=== PATIENT | female | born 1945 | race Caucasian/White ===

== ENCOUNTER 2017-08-04 16:52 | Inpatient (IN) | payer OTHER ==
[2017-08-04 20:16] VITALS: BMI 30.7
--- NOTE | 2017-08-04 20:59 | CP.PCM.HP ---
History of Present Illness - History of Present Illness History of Present Illness: PMD: Dr Medrano Orthopedic: Dr Landa Chief complaint: Painful right humerus The patient was seen and examined in the TCU HPI: 71 years old female with hx of HTN, admitted to the [facility] on and diagnosed with Right Humeral neck fracture s/p right shoulder replacement on 08/03/17. She is transferred to the [facility] for continued treatment. In the [facility] she was being treated for Asymptomatic Pyuria. At present she refers no dysuria, urinary frequencies, headache, dizziness, nausea, vomiting and minimal pain to the right shoulder. PMH: HTN, HLD PSH: Righ shoulder Humeral neck replacement FH: Brother - DC at 60 and Liver CA, Sister - 4 cardiac surgeries at the age of 27 SH: Denies toba Allergies: NKDA Medication. Reviewed Present on Admission - Present on Admission Any Indicators Present on Admission: No History of DVT/PE: No History of Uncontrolled Diabetes: No Urinary Catheter: No Decubitus Ulcer Present: No Review of Systems - Constitutional Constitutional: absent: Anorexia, Chills, Fatigue, Fever, Lethargy - EENT Eyes: Requires Corrective Lenses. absent: Diplopia, Floaters Ears: absent: Decreased Hearing, Ear Discharge, Tinnitus Nose/Mouth/Throat: absent: Epistaxis, Nasal Congestion, Nasal Discharge, Sinus Pain, Sinus Pressure - Cardiovascular Cardiovascular: absent: Chest Pain at Rest, Dyspnea, Edema - Respiratory Respiratory: absent: Cough, Dyspnea, Wheezing, Chest Congestion - Gastrointestinal Gastrointestinal: absent: Constipation, Diarrhea, Nausea, Vomiting - Genitourinary Genitourinary: absent: Dysuria, Flank Pain, Hematuria, Urinary Frequency - Musculoskeletal Additional comments: Right shoulder with Otrhopedic cast post shoulder replacement - Integumentary Integumentary: absent: Pruritus, Rash, Skin Ulcer, Sores, Striae, Swelling - Neurological Neurological: absent: Confusion, Dizziness, Focal Weakness, Headaches, Paresthesias, Weakness - Psychiatric Psychiatric: absent: Anxiety, Depression, Panic Attacks - Endocrine Endocrine: absent: Palpitations, Polydipsia, Polyphagia, Polyuria - Hematologic/Lymphatic Hematologic: absent: Easy Bleeding, Easy Bruising Past Patient History - Past Medical History & Family History Past Medical History?: Yes - Past Social History Smoking Status: Never Smoked Chewing Tobacco Use: No Cigar Use: No Alcohol: Social Drugs: Denies Home Situation {Lives}: With Family - CARDIAC Hx Hypercholesterolemia: Yes Hx Hypertension: Yes - PULMONARY Hx Respiratory Disorders: No - NEUROLOGICAL Hx Neurological Disorder: No - HEENT Hx HEENT Problems: No - RENAL Hx Chronic Kidney Disease: No - ENDOCRINE/METABOLIC Hx Endocrine Disorders: No - HEMATOLOGICAL/ONCOLOGICAL Hx AIDS: No Hx Human Immunodeficiency Virus (HIV): No - INTEGUMENTARY Hx Dermatological Problems: No - MUSCULOSKELETAL/RHEUMATOLOGICAL Hx Falls: Yes (fell recently, Fx rt humerus) - GASTROINTESTINAL Hx Gastrointestinal Disorders: No - GENITOURINARY/GYNECOLOGICAL Hx Genitourinary Disorders: No - PSYCHIATRIC Hx Substance Use: No - SURGICAL HISTORY Hx Surgeries: No - ANESTHESIA Hx Anesthesia: Yes Hx Anesthesia Reactions: No Hx Malignant Hyperthermia: No Meds Allergies/Adverse Reactions: Allergies Allergy/AdvReac Type Severity Reaction Status Date / Time No Known Allergies Allergy Unverified 07/31/17 11:06 Physical Exam - Constitutional Appears: No Acute Distress - Head Exam Head Exam: ATRAUMATIC, NORMAL INSPECTION, NORMOCEPHALIC - Eye Exam Eye Exam: EOMI, Normal appearance Pupil Exam: NORMAL ACCOMODATION, PERRL - ENT Exam ENT Exam: Mucous Membranes Moist, Normal Exam - Neck Exam Neck exam: Positive for: Full Rom, Normal Inspection. Negative for: Lymphadenopathy, Tenderness - Respiratory Exam Respiratory Exam: Clear to Auscultation Bilateral. absent: Rales, Rhonchi, Wheezes - Cardiovascular Exam Cardiovascular Exam: REGULAR RHYTHM, +S1, +S2 - GI/Abdominal Exam GI & Abdominal Exam: Normal Bowel Sounds, Soft. absent: Mass, Organomegaly - Rectal Exam Rectal Exam: Deferred - Extremities Exam Additional comments: Right should cast post surgery. - Back Exam Back exam: NORMAL INSPECTION. absent: CVA tenderness (L), CVA tenderness (R) - Neurological Exam Neurological exam: Alert, CN II-XII Intact, Oriented x3, Reflexes Normal - Psychiatric Exam Psychiatric exam: Normal Affect, Normal Mood - Skin Skin Exam: Dry, Intact, Normal Color, Warm Results - Vital Signs Recent Vital Signs: Last Vital Signs Temp Pulse 73 08/04/17 20:36 Resp 18 08/04/17 20:36 BP Pulse Ox 96 08/04/17 20:36 Assessment & Plan - Assessment and Plan (Free Text) Assessment: #. Humeral Neck fracture #. HTN #. Pyuria Plan: 71 years old female with hx of HTN, admitted to the [facility] on and diagnosed with Right Humeral neck fracture s/p right shoulder replacement on 08/03/17. She is transferred to the [facility] for continued treatment. In the [facility] she was being treated for Asymptomatic Pyuria. #. 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 HTN - Metoprolol - Monitor BP #. Pyuria. Patient received 2 days of Ceftriaxone. - Ceftriaxone for 1 day more and DC if patient has no urinary symptoms - Stat UA - CBC to evaluate WBC #. Stress Ulcer prophylaxis with Pantoprazol #. DVT prophylaxis with Lovenox #.Code Status: Full - Date & Time Date: 08/04/17 Time: 20:59
[2017-08-04] MEDS ORDERED: Oxycodone/Acetaminophen 5/325 mg Tab PO PRN (21:06)
[2017-08-05] MEDS: cefTRIAXone IV 1 gm in Dextros 50 ML IVPB SCH (05:22)
[2017-08-05 06:06] LABS: BASO # 0.1 K/uL (0.0-0.2); BASO % 0.6 % (0.0-2.0); EOS # 0.2 K/uL (0.0-0.7); EOS % 1.9 % (0.0-4.0); HEMATOCRIT 32.5 % (34.0-47.0); LYMPH # 1.9 K/uL (1.0-4.3); LYMPH % 14.9 % (20.0-40.0); MEAN CELL VOLUME 100.6 fl (81.0-99.0); MEAN CORPUSCULAR HEMOGLOBIN 33.8 pg (27.0-31.0); MEAN CORPUSCULAR HGB CONC 33.6 g/dL (33.0-37.0); MEAN PLATELET VOLUME 9.7 fl (7.2-11.7); MONO # 2.5 K/uL (0.0-0.8); MONO % 19.5 % (0.0-10.0); NEUT # 8.1 K/uL (1.8-7.0); NEUT % 63.1 % (50.0-75.0); WHITE BLOOD COUNT 12.8 K/uL (4.8-10.8)
[2017-08-05] MEDS: Oxycodone/Acetaminophen 5/325 mg Tab PO PRN ×3 (06:18→20:25)
[2017-08-05 08:04] VITALS: RESP 20
[2017-08-05] MEDS: Pantoprazole 40 mg EC Tab PO SCH (08:58)
[2017-08-05] MEDS: Enoxaparin 40 mg Syringe SC SCH (08:58)
[2017-08-05] MEDS: Saccharomyces Boulardi 250 mg Cap PO SCH ×2 (08:58→16:02)
[2017-08-05] MEDS ORDERED: cefTRIAXone (Rocephin) 1 gm Inj IVPB SCH (09:00)
[2017-08-05 09:42] LABS: RBC URINE 2 /hpf (0-3); URINE BILIRUBIN NEGATIVE (NEGATIVE); URINE BLOOD NEGATIVE (NEGATIVE); URINE COLOR AMBER (YELLOW); URINE GLUCOSE (UA) NEG (Normal); URINE KETONE TRACE mg/dL (NEGATIVE); URINE LEUKOCYTE ESTERASE SMALL Leu/uL (Negative); URINE PROTEIN NEGATIVE (NEGATIVE); WBC URINE 5 /hpf (0-5)
--- NOTE | 2017-08-05 13:07 | CP.PCM.PN ---
Subjective - Date & Time of Evaluation Date of Evaluation: 08/05/17 Time of Evaluation: 13:04 - Subjective Subjective: Patient states pain is well controlled, denies numbness /tingling. Objective - Vital Signs/Intake and Output Vital Signs (last 24 hours): Temp Pulse Resp BP Pulse Ox 97.2 F L 80 20 121/65 99 08/05/17 08:03 08/05/17 08:58 08/05/17 08:03 08/05/17 08:58 08/05/17 08:03 - Medications Medications: Current Medications Docusate Sodium (Colace) 100 mg PO BID [facility] Last Admin: 08/05/17 08:57 Dose: 100 mg Enoxaparin Sodium (Lovenox) 40 mg SC DAILY [facility] PRN Reason: Protocol Last Admin: 08/05/17 08:58 Dose: 40 mg Ceftriaxone Sodium (Rocephin Iv 1 Gm Duplex) 50 mls @ 50 mls/hr IVPB DAILY@ 0500 [facility] Stop: 08/06/17 05:01 Last Admin: 08/05/17 05:22 Dose: 50 mls/hr Metoprolol Tartrate (Lopressor) 50 mg PO BID [facility] Last Admin: 08/05/17 08:58 Dose: 50 mg Oxycodone/Acetaminophen (Percocet 5/325 Mg Tab) 2 tab PO Q4 PRN PRN Reason: for pain level 8-10 Stop: 08/07/17 21:07 Last Admin: 08/05/17 06:18 Dose: 2 tab Oxycodone/Acetaminophen (Percocet 5/325 Mg Tab) 1 tab PO Q4 PRN PRN Reason: for pain level 4-7 Stop: 08/07/17 21:07 Pantoprazole Sodium (Protonix Ec Tab) 40 mg PO DAILY [facility] Last Admin: 08/05/17 08:58 Dose: 40 mg Saccharomyces Boulardii (Florastor) 250 mg PO BID [facility] Last Admin: 08/05/17 08:58 Dose: 250 mg - Labs Labs: 08/05/17 05:45 - Extremities Exam Additional comments: RUE: +ROM wrist/fingers, sensation nintact rad/ulnar/med nerves, +radial pulse, no visible drainage, shoulder immob intact Assessment and Plan (1) Closed fracture of right proximal humerus Assessment & Plan: POD#2 s/p right shoulder reverse TSA orthopedically stable for d/c patient with group b strep UTI on admission, tx as per medicine, patient is on rocephin day #3 maintain immob at all times keep incision site dry dressing may be removed by patient on wednesday 08/08 and keep covered with dry sterile dressing ntil allyssa removed d/w Dr. Landa, agrees with above Status: Acute
[2017-08-06] MEDS: cefTRIAXone IV 1 gm in Dextros 50 ML IVPB SCH (04:22)
[2017-08-06] MEDS: Oxycodone/Acetaminophen 5/325 mg Tab PO PRN ×3 (04:52→22:34)
[2017-08-06] MEDS: Pantoprazole 40 mg EC Tab PO SCH (09:07)
[2017-08-06] MEDS: Saccharomyces Boulardi 250 mg Cap PO SCH ×2 (09:07→16:01)
[2017-08-06] MEDS: Enoxaparin 40 mg Syringe SC SCH (09:07)
--- NOTE | 2017-08-06 13:27 | CP.PCM.PN ---
Subjective - Date & Time of Evaluation Date of Evaluation: 08/06/17 Time of Evaluation: 13:25 - Subjective Subjective: PT +WBC, afebrile Was given Ceftriaxone, however WBC worsening URINE CX +GBS Sensitive to PCN; AMOXICILLIN 500 MG PO Q8 HOURS INITIATED FOR 7 DAY COURSE per guidelines for less severe infections. If condition worsens, may consider IV PEN G 3-4 million units q4 hours Objective - Vital Signs/Intake and Output Vital Signs (last 24 hours): Temp Pulse Resp BP Pulse Ox 98.4 F 82 20 185/85 H 96 08/06/17 08:37 08/06/17 09:07 08/06/17 08:37 08/06/17 09:07 08/06/17 08:37 - Medications Medications: Current Medications Amoxicillin (Amoxil 500 Mg Cap) 500 mg PO Q8 [facility] PRN Reason: Protocol Stop: 08/13/17 17:01 Docusate Sodium (Colace) 100 mg PO BID [facility] Last Admin: 08/06/17 09:08 Dose: 100 mg Enoxaparin Sodium (Lovenox) 40 mg SC DAILY [facility] PRN Reason: Protocol Last Admin: 08/06/17 09:07 Dose: 40 mg Metoprolol Tartrate (Lopressor) 50 mg PO BID [facility] Last Admin: 08/06/17 09:07 Dose: 50 mg Oxycodone/Acetaminophen (Percocet 5/325 Mg Tab) 2 tab PO Q4 PRN PRN Reason: for pain level 8-10 Stop: 08/07/17 21:07 Last Admin: 08/06/17 11:32 Dose: 2 tab Oxycodone/Acetaminophen (Percocet 5/325 Mg Tab) 1 tab PO Q4 PRN PRN Reason: for pain level 4-7 Stop: 08/07/17 21:07 Pantoprazole Sodium (Protonix Ec Tab) 40 mg PO DAILY [facility] Last Admin: 08/06/17 09:07 Dose: 40 mg Saccharomyces Boulardii (Florastor) 250 mg PO BID [facility] Last Admin: 08/06/17 09:07 Dose: 250 mg - Labs Labs: 08/05/17 05:45
[2017-08-07] MEDS: Oxycodone/Acetaminophen 5/325 mg Tab PO PRN ×3 (09:24→21:07)
[2017-08-07] MEDS: Saccharomyces Boulardi 250 mg Cap PO SCH ×2 (09:25→16:48)
[2017-08-07] MEDS: Enoxaparin 40 mg Syringe SC SCH (09:25)
[2017-08-07] MEDS: Pantoprazole 40 mg EC Tab PO SCH (09:26)
[2017-08-07] MEDS ORDERED: Oxycodone/Acetaminophen 5/325 mg Tab PO PRN (22:39)
[2017-08-08] MEDS: Oxycodone/Acetaminophen 5/325 mg Tab PO PRN ×4 (06:11→20:51)
[2017-08-08] MEDS: Pantoprazole 40 mg EC Tab PO SCH (08:51)
[2017-08-08] MEDS: Saccharomyces Boulardi 250 mg Cap PO SCH ×2 (08:51→17:19)
[2017-08-08] MEDS: Enoxaparin 40 mg Syringe SC SCH (08:53)
--- NOTE | 2017-08-08 12:19 | CP.PCM.PN ---
Subjective - Date & Time of Evaluation Date of Evaluation: 08/08/17 Time of Evaluation: 12:15 - Subjective Subjective: S- pt comfortable with minimal post op dsicomfort Objective - Vital Signs/Intake and Output Vital Signs (last 24 hours): Temp Pulse Resp BP Pulse Ox 98.1 F 73 20 136/70 99 08/08/17 08:09 08/08/17 08:52 08/08/17 08:09 08/08/17 08:52 08/08/17 08:09 - Medications Medications: Current Medications Amoxicillin (Amoxil 500 Mg Cap) 500 mg PO Q8 [facility] PRN Reason: Protocol Stop: 08/13/17 17:01 Last Admin: 08/08/17 08:52 Dose: 500 mg Docusate Sodium (Colace) 100 mg PO BID [facility] Last Admin: 08/08/17 08:51 Dose: 100 mg Metoprolol Tartrate (Lopressor) 50 mg PO BID [facility] Last Admin: 08/08/17 08:52 Dose: 50 mg Oxycodone/Acetaminophen (Percocet 5/325 Mg Tab) 2 tab PO Q4 PRN PRN Reason: Pain, severe (8-10) Stop: 08/10/17 22:39 Last Admin: 08/08/17 12:10 Dose: 2 tab Oxycodone/Acetaminophen (Percocet 5/325 Mg Tab) 1 tab PO Q4 PRN PRN Reason: Pain, moderate (4-7) Stop: 08/10/17 22:40 Pantoprazole Sodium (Protonix Ec Tab) 40 mg PO DAILY [facility] Last Admin: 08/08/17 08:51 Dose: 40 mg Saccharomyces Boulardii (Florastor) 250 mg PO BID [facility] Last Admin: 08/08/17 08:51 Dose: 250 mg - Labs Labs: 08/05/17 05:45 - Additional Findings Additional findings: Objective sytemic- wnl Musculoskeltal stance/gait- defrred orthopedically stable R shoulder wound benign n/v intact post op xrasy - reveal acceptable position of construct orthopedically stable
[2017-08-09] MEDS: Oxycodone/Acetaminophen 5/325 mg Tab PO PRN ×2 (08:30→21:16)
[2017-08-09] MEDS: Saccharomyces Boulardi 250 mg Cap PO SCH ×2 (08:33→16:42)
[2017-08-09] MEDS: Pantoprazole 40 mg EC Tab PO SCH (08:33)
--- NOTE | 2017-08-09 17:44 | CP.PCM.PN ---
Subjective - Date & Time of Evaluation Date of Evaluation: 08/09/17 Time of Evaluation: 17:40 - Subjective Subjective: Patient seen and examined bedside. Feeling well. Hemodynamically stabel, afebrile. Pain is controlled. Participating with PT. No acute issues overnight Objective - Vital Signs/Intake and Output Vital Signs (last 24 hours): Temp Pulse Resp BP Pulse Ox 97.7 F 76 20 134/71 97 08/09/17 16:36 08/09/17 16:43 08/09/17 16:36 08/09/17 16:43 08/09/17 16:36 - Medications Medications: Current Medications Amoxicillin (Amoxil 500 Mg Cap) 500 mg PO Q8 [facility] PRN Reason: Protocol Stop: 08/13/17 17:01 Last Admin: 08/09/17 16:42 Dose: 500 mg Docusate Sodium (Colace) 100 mg PO BID [facility] Last Admin: 08/09/17 16:43 Dose: 100 mg Metoprolol Tartrate (Lopressor) 50 mg PO BID [facility] Last Admin: 08/09/17 16:43 Dose: 50 mg Oxycodone/Acetaminophen (Percocet 5/325 Mg Tab) 2 tab PO Q4 PRN PRN Reason: Pain, severe (8-10) Stop: 08/10/17 22:39 Last Admin: 08/09/17 08:30 Dose: 2 tab Oxycodone/Acetaminophen (Percocet 5/325 Mg Tab) 1 tab PO Q4 PRN PRN Reason: Pain, moderate (4-7) Stop: 08/10/17 22:40 Last Admin: 08/09/17 16:45 Dose: 1 tab Pantoprazole Sodium (Protonix Ec Tab) 40 mg PO DAILY [facility] Last Admin: 08/09/17 08:33 Dose: 40 mg Saccharomyces Boulardii (Florastor) 250 mg PO BID [facility] Last Admin: 08/09/17 16:42 Dose: 250 mg - Labs Labs: 08/05/17 05:45 - Constitutional Appears: Non-toxic, No Acute Distress - Head Exam Head Exam: ATRAUMATIC, NORMAL INSPECTION, NORMOCEPHALIC - Eye Exam Eye Exam: EOMI, Normal appearance, PERRL Pupil Exam: NORMAL ACCOMODATION - ENT Exam ENT Exam: Mucous Membranes Moist, Normal Exam - Neck Exam Neck Exam: Full ROM, Normal Inspection - Respiratory Exam Respiratory Exam: Clear to Ausculation Bilateral, NORMAL BREATHING PATTERN. absent: Rales, Rhonchi, Wheezes - Cardiovascular Exam Cardiovascular Exam: REGULAR RHYTHM, RRR, +S1, +S2. absent: JVD - GI/Abdominal Exam GI & Abdominal Exam: Soft, Normal Bowel Sounds. absent: Distended, Tenderness, Rebound - Rectal Exam Rectal Exam: Deferred - Extremities Exam Extremities Exam: Normal Inspection. absent: Calf Tenderness, Pedal Edema Additional comments: Right arm sling pulses intact capillary refill intact - Back Exam Back Exam: NORMAL INSPECTION - Neurological Exam Neurological Exam: Alert, Awake, CN II-XII Intact, Normal Gait, Oriented x3 - Psychiatric Exam Psychiatric exam: Normal Affect, Normal Mood - Skin Skin Exam: Dry, Intact, Warm Assessment and Plan - Assessment and Plan (Free Text) Assessment: 71 years old female with hx of HTN, admitted to the [facility] on and diagnosed with Right Humeral neck fracture s/p right shoulder replacement on 08/03/17. She is transferred to the [facility] for continued PT. She also was diagnosed with UTI secondary to Strep agalactiae and started on antibiotics . 1. Humeral Neck fracture s/p right shoulder replacement surgery pain is controlled Continue PT Consult with Dr Landa Orthopedic, appreciated Continue Pain management Continue PT/OT incentive spirometry 2. HTN controlled continue Metoprolol 3.UTI secondary to Strep agalactiae Continue amoxicillin 4. Anemia Most likely [popst op anemia Hgb 10.9 monitor for now 5. Stress Ulcer prophylaxis Pantoprazol 6. DVT prophylaxis Lovenox
[2017-08-10 08:31] VITALS: BP 134/72; PULSE 78; TEMP 98.1; O2SAT 94
[2017-08-10] MEDS: Pantoprazole 40 mg EC Tab PO SCH (09:02)
[2017-08-10] MEDS: Saccharomyces Boulardi 250 mg Cap PO SCH (09:02)
[2017-08-10] MEDS: Oxycodone/Acetaminophen 5/325 mg Tab PO PRN ×2 (09:03→14:47)
--- NOTE | 2017-08-10 09:05 | CP.PCM.CON ---
History of Present Illness - History of Present Illness History of Present Illness: Dr Burnham PMR consultation on Donna Lopez, born 1945, who has been admitted to [address] [facility] s/p right shoulder replacement by Dr Landa. Post op doing very well. Denies significant pain and no neurological sequlae. She is right hand dominant. Review of Systems - Constitutional Constitutional: absent: Anorexia, Chills - EENT Eyes: absent: Blurred Vision Ears: absent: Ear Discharge, Ear Pain Nose/Mouth/Throat: absent: Nasal Congestion - Cardiovascular Cardiovascular: absent: Chest Pain - Respiratory Respiratory: absent: Dyspnea, Hemoptysis - Gastrointestinal Gastrointestinal: absent: Belching, Constipation - Genitourinary Genitourinary: absent: Difficulty Urinating - Musculoskeletal Musculoskeletal: Limited Range of Motion (right shoulder). absent: Abnormal Gait - Integumentary Integumentary: absent: Bleeding Lesions - Neurological Neurological: absent: Abnormal Movements - Psychiatric Psychiatric: absent: Anxiety, Behavioral Changes Past Patient History - Past Medical History & Family History Past Medical History?: Yes - Past Social History Smoking Status: Never Smoked Chewing Tobacco Use: No Cigar Use: No Alcohol: Social Drugs: Denies Home Situation {Lives}: With Family (+ elevator) - CARDIAC Hx Cardiac Disorders: Yes Hx Hypercholesterolemia: Yes Hx Hypertension: Yes - PULMONARY Hx Respiratory Disorders: No - NEUROLOGICAL Hx Neurological Disorder: No - HEENT Hx HEENT Problems: No - RENAL Hx Chronic Kidney Disease: No - ENDOCRINE/METABOLIC Hx Endocrine Disorders: No - HEMATOLOGICAL/ONCOLOGICAL Hx AIDS: No Hx Human Immunodeficiency Virus (HIV): No - INTEGUMENTARY Hx Dermatological Problems: No - MUSCULOSKELETAL/RHEUMATOLOGICAL Hx Falls: Yes (fell recently, Fx rt humerus) - GASTROINTESTINAL Hx Gastrointestinal Disorders: No - GENITOURINARY/GYNECOLOGICAL Hx Genitourinary Disorders: No - PSYCHIATRIC Hx Substance Use: No - SURGICAL HISTORY Hx Surgeries: No - ANESTHESIA Hx Anesthesia: Yes Hx Anesthesia Reactions: No Hx Malignant Hyperthermia: No Meds Allergies/Adverse Reactions: Allergies Allergy/AdvReac Type Severity Reaction Status Date / Time No Known Allergies Allergy Unverified 07/31/17 11:06 - Medications Medications: Current Medications Amoxicillin (Amoxil 500 Mg Cap) 500 mg PO Q8 [facility] PRN Reason: Protocol Stop: 08/13/17 17:01 Last Admin: 08/10/17 00:25 Dose: 500 mg Docusate Sodium (Colace) 100 mg PO BID [facility] Last Admin: 08/09/17 16:43 Dose: 100 mg Metoprolol Tartrate (Lopressor) 50 mg PO BID [facility] Last Admin: 08/09/17 16:43 Dose: 50 mg Oxycodone/Acetaminophen (Percocet 5/325 Mg Tab) 2 tab PO Q4 PRN PRN Reason: Pain, severe (8-10) Stop: 08/10/17 22:39 Last Admin: 08/09/17 21:16 Dose: 2 tab Oxycodone/Acetaminophen (Percocet 5/325 Mg Tab) 1 tab PO Q4 PRN PRN Reason: Pain, moderate (4-7) Stop: 08/10/17 22:40 Last Admin: 08/09/17 16:45 Dose: 1 tab Pantoprazole Sodium (Protonix Ec Tab) 40 mg PO DAILY [facility] Last Admin: 08/09/17 08:33 Dose: 40 mg Saccharomyces Boulardii (Florastor) 250 mg PO BID [facility] Last Admin: 08/09/17 16:42 Dose: 250 mg Physical Exam - Constitutional Appears: Non-toxic, No Acute Distress - Head Exam Head Exam: ATRAUMATIC, NORMAL INSPECTION, NORMOCEPHALIC - Eye Exam Eye Exam: EOMI - ENT Exam ENT Exam: Mucous Membranes Moist - Respiratory Exam Respiratory Exam: NORMAL BREATHING PATTERN. absent: Chest Wall Tenderness - Cardiovascular Exam Cardiovascular Exam: REGULAR RHYTHM - GI/Abdominal Exam GI & Abdominal Exam: absent: Distended - Extremities Exam Extremities exam: Negative for: calf tenderness, pedal edema - Neurological Exam Neurological exam: Alert, Oriented x3 - Psychiatric Exam Psychiatric exam: Normal Affect, Normal Mood Results - Vital Signs Recent Vital Signs: Last Vital Signs Temp 98.1 F 08/10/17 08:31 Pulse 78 08/10/17 08:31 Resp 20 08/10/17 08:31 BP 134/72 08/10/17 08:31 Pulse Ox 94 L 08/10/17 08:31 - Labs Result Diagrams: 08/05/17 05:45 Assessment & Plan - Assessment and Plan (Free Text) Assessment: 71 year old female s/p right TSR 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
--- NOTE | 2017-08-10 11:32 | CP.PCM.PN ---
Subjective - Date & Time of Evaluation Date of Evaluation: 08/10/17 Time of Evaluation: 11:30 - Subjective Subjective: Patient states pain is much better. Denies numbness/tingling. Objective - Vital Signs/Intake and Output Vital Signs (last 24 hours): Temp Pulse Resp BP Pulse Ox 98.1 F 78 20 134/72 94 L 08/10/17 08:31 08/10/17 09:02 08/10/17 08:31 08/10/17 09:02 08/10/17 08:31 - Medications Medications: Current Medications Amoxicillin (Amoxil 500 Mg Cap) 500 mg PO Q8 [facility] PRN Reason: Protocol Stop: 08/13/17 17:01 Last Admin: 08/10/17 09:00 Dose: 500 mg Docusate Sodium (Colace) 100 mg PO BID [facility] Last Admin: 08/10/17 09:00 Dose: 100 mg Metoprolol Tartrate (Lopressor) 50 mg PO BID [facility] Last Admin: 08/10/17 09:02 Dose: 50 mg Oxycodone/Acetaminophen (Percocet 5/325 Mg Tab) 2 tab PO Q4 PRN PRN Reason: Pain, severe (8-10) Stop: 08/10/17 22:39 Last Admin: 08/10/17 09:03 Dose: 2 tab Oxycodone/Acetaminophen (Percocet 5/325 Mg Tab) 1 tab PO Q4 PRN PRN Reason: Pain, moderate (4-7) Stop: 08/10/17 22:40 Last Admin: 08/09/17 16:45 Dose: 1 tab Pantoprazole Sodium (Protonix Ec Tab) 40 mg PO DAILY [facility] Last Admin: 08/10/17 09:02 Dose: 40 mg Saccharomyces Boulardii (Florastor) 250 mg PO BID [facility] Last Admin: 08/10/17 09:02 Dose: 250 mg - Labs Labs: 08/05/17 05:45 - Extremities Exam Additional comments: right shoulder: incision intact, no erythema, dry. Sensation intact, +radial pulse, +ROM fingers/wrist, immobilizer intact Assessment and Plan (1) Closed fracture of right proximal humerus Assessment & Plan: POD#7 s/p right total shoulder replacement -d/c home -f/u Dr. Landa 7-10 days call for appt -maintain shoulder immobilizer at this time, remove only for bathing -keep incision dry while bathing -d/w Dr. Landa, agrees with above Status: Acute
--- NOTE | 2017-08-10 17:59 | CP.PCM.DIS ---
Provider - Provider Date of Admission: 08/04/17 20:27 Attending physician: Bob Roy Primary care physician: Corinna Consults: Dr. Cordell Burnham Time Spent in preparation of Discharge (in minutes): 25 Hospital Course - Lab Results Lab Results: Most Recent Lab Values WBC 12.8 K/uL (4.8-10.8) H 08/05/17 05:45 RBC 3.23 Mil/uL (3.80-5.20) L 08/05/17 05:45 Hgb 10.9 g/dL (12.0-16.0) L 08/05/17 05:45 Hct 32.5 % (34.0-47.0) L 08/05/17 05:45 MCV 100.6 fl (81.0-99.0) H 08/05/17 05:45 MCH 33.8 pg (27.0-31.0) H 08/05/17 05:45 MCHC 33.6 g/dL (33.0-37.0) 08/05/17 05:45 RDW 13.0 % (11.5-14.5) 08/05/17 05:45 Plt Count 199 K/uL (130-400) 08/05/17 05:45 MPV 9.7 fl (7.2-11.7) 08/05/17 05:45 Neut % (Auto) 63.1 % (50.0-75.0) 08/05/17 05:45 Lymph % (Auto) 14.9 % (20.0-40.0) L 08/05/17 05:45 Barnes % (Auto) 19.5 % (0.0-10.0) H 08/05/17 05:45 Eos % (Auto) 1.9 % (0.0-4.0) 08/05/17 05:45 Baso % (Auto) 0.6 % (0.0-2.0) 08/05/17 05:45 Neut # 8.1 K/uL (1.8-7.0) H 08/05/17 05:45 Lymph # 1.9 K/uL (1.0-4.3) 08/05/17 05:45 Barnes # 2.5 K/uL (0.0-0.8) H 08/05/17 05:45 Eos # 0.2 K/uL (0.0-0.7) 08/05/17 05:45 Baso # 0.1 K/uL (0.0-0.2) 08/05/17 05:45 Urine Color Liana (YELLOW) 08/05/17 09:14 Urine Clarity Slighty-cloudy (Clear) 08/05/17 09:14 Urine pH 5.0 (5.0-8.0) 08/05/17 09:14 Ur Specific [place] 1.021 (1.003-1.030) 08/05/17 09:14 Urine Protein Negative mg/dL (NEGATIVE) 08/05/17 09:14 Urine Glucose (UA) Neg mg/dL (Normal) 08/05/17 09:14 Urine Ketones Trace mg/dL (NEGATIVE) 08/05/17 09:14 Urine Blood Negative (NEGATIVE) 08/05/17 09:14 Urine Nitrate Negative (NEGATIVE) 08/05/17 09:14 Urine Bilirubin Negative (NEGATIVE) 08/05/17 09:14 Urine Urobilinogen 2.0 mg/dL (0.2-1.0) H 08/05/17 09:14 Ur Leukocyte Esterase Small [place]/uL (Negative) 08/05/17 09:14 Urine RBC (Auto) 2 /hpf (0-3) 08/05/17 09:14 Urine Microscopic WBC 5 /hpf (0-5) 08/05/17 09:14 Ur Squamous Epith Cells 1 /hpf (0-5) 08/05/17 09:14 - Hospital Course Hospital Course: This is a 71 year old female with a pmh of hypertension, who was admitted to [facility] on 08/01/17 and at that time was diagnosed with a right humeran neck fracture . She underwent right shoulder replacement on [address] Landa. She was then transferred to [facility] for continued treatment. During her uncomplicated stay, she had physical therapy and occupational therapy with which she cooperated with. She was given Ceftriaxone due to pyuria and then was given amoxicillin as outpatient. She was seen by Dr. Landa on consultation for orthopedics. Today, she was discharged to home in stable condition. . Humeral Neck fracture, s/p right shoulder replacement - Pt to follow up with Dr. Landa as directed - Script for 5 days of Percocet given #. HTN - Metoprolol as outpatient #. UTI secondary to Strep agalatiae - Finish 7 day course of amoxicillin as prescribed Discharge Exam - Additional Findings Additional findings: Physical exam: Constitutional- cooperative, awake, alert. Head- NCAT, PERRL Eye- PERRL, normal accommodation ENT- normal exam, MMM. Neck- normal inspection, supple, no JVD Respiratory- CTAB, no wheezes rales rhonchi Cardiovascular- RRR, +S1, +S2 no MRG GI/Abdominal- normal bowel sounds, soft, no mass, no hsm Skin- warm, dry Extremities Exam- normal capillary refill, normal inspection Neurological Exam- alert, stable gait Psych- normal mood, normal affect Discharge Plan - Discharge Medications Prescriptions: Amoxicillin [Amoxil 500 mg Cap] 500 mg PO Q8 3 Days #9 cap Docusate [Colace] 100 mg PO BID #20 cap Metoprolol Tartrate [Lopressor] 50 mg PO BID #60 tab oxyCODONE/Acetaminophen [Percocet 5/325 mg Tab] 1 tab PO Q4 PRN #30 tab PRN Reason: Pain, Moderate (4-7) Pantoprazole [Protonix EC Tab] 40 mg PO DAILY #30 ect Saccharomyces Boulardi [Florastor] 250 mg PO BID #30 cap - Follow Up Plan Condition: GOOD Disposition: HOME/ ROUTINE Instructions: Rotator Cuff Tear Repair (DC), Fall Prevention (DC) Referrals: Cesar Landa III, MD [Staff Provider] - Mitesh Burnham MD [Staff Provider] -
== END 2017-08-10 16:00 | disposition home or self-care (01) | DRG 560 ==
LOC: H.TCU 20:27
PROVIDERS: ADMIT Internal Medicine; ATTEND Internal Medicine
PROC: F07Z9FZ Gait Training/Functional Ambulation Treatment using Assistive, Adaptive, Supportive or Protective Equipment (ICD-10-PCS; principal; 2017-08-04)
PROC: F08Z4FZ Home Management Treatment using Assistive, Adaptive, Supportive or Protective Equipment (ICD-10-PCS; 2017-08-04)
PROC: F07K6FZ Therapeutic Exercise Treatment of Musculoskeletal System - Upper Back / Upper Extremity using Assistive, Adaptive, Supportive or Protective Equipment (ICD-10-PCS; 2017-08-05)
DX: Z47.1 Aftercare following joint replacement surgery (principal); N39.0 Urinary tract infection, site not specified; Z96.611 Presence of right artificial shoulder joint; D64.9 Anemia, unspecified; B95.5 Unspecified streptococcus as the cause of diseases classified elsewhere; E78.5 Hyperlipidemia, unspecified; I10 Essential (primary) hypertension